=== PATIENT | female | born 1945 | race Caucasian/White ===

== ENCOUNTER 2024-11-03 18:45 | Emergency (ER) | payer OTHER, MEDICARE, SELFPAY ==
[2024-11-03 18:45] VITALS: BMI 17.7
[2024-11-03 19:01] VITALS: BP 164/88
[2024-11-03 19:21] LABS: % Basophils 0.6 % (0-2); % Eosinophils 1.7 % (0-6); % Immature Granulocytes 0.3 % (0-0.5); % Lymphocytes 14.7 % (20.5-51.1); % Monocytes 9.4 % (1.7-9.3); % Neutrophils 73.3 % (42.2-75.2); Absolute Basophils 0.1 10^3/uL (0-0.2); Absolute Eosinophils 0.1 10^3/uL (0-0.7); Absolute Lymphocytes 1.1 10^3/uL (1.2-3.4); Absolute Monocytes 0.7 10^3/uL (0.1-0.6); Absolute Neutrophils 5.7 10^3/uL (1.4-6.5); Hematocrit 45.2 % (37.0-47.0); Hemoglobin 15.5 g/dL (12.0-16.0); Mean Corp Hgb Conc. 34.3 g/dL (33.0-37.0); Mean Corpuscular Hgb 32.2 pg (27.0-31.0); Mean Platelet Volume 9.5 fL (7.4-10.4); Nucleated Red Blood Cells % 0 %; Platelet Count 261 10^3/uL (130-400); Red Blood Cell Count 4.81 10^6/uL (4.20-5.40); Red Cell Dist. Width 12.9 % (11.5-14.5); White Blood Cell Count 7.7 10^3/uL (4.8-10.8)
[2024-11-03 19:39] LABS: ALT (SGPT) 14 U/L (0-35); AST (SGOT) 18 U/L (14-36); Albumin 4.9 g/dl (3.5-5.0); Alkaline Phosphatase 92 U/L (38-126); Blood Urea Nitrogen 21 mg/dl (7-17); Calcium 10.8 mg/dl (8.4-10.2); Carbon Dioxide 32 mmol/L (22-30); Chloride 98 mmol/L (98-107); Glucose 114 mg/dl (70-99); Potassium 5.5 mmol/L (3.5-5.1); Sodium 137 mmol/L (135-145); Total Bilirubin 0.5 mg/dl (0.2-1.3); Total Protein 6.9 g/dl (6.3-8.2); eGFR > 60.00
[2024-11-03 20:00] VITALS: BP 145/88
--- NOTE | 2024-11-03 22:10 | ED.GENMED ---
History of Present Illness
General
Chief Complaint: Skin Problem
Source: patient
Time Seen by Provider: 11/03/24 22:01
Nursing documentation reviewed up to this point in time: agreed with
History of Present Illness
History of Present Illness:
79-year-old female that presents to the emergency department with redness, swelling and heel ulcer on the right foot. Patient states that the heel ulcer has been going on for several months. She has been applying antibiotic ointment to the wound
and attempt to care for it. Patient denies chest pain or shortness of breath. She states that the foot itself has been swollen and erythematous also for several months. Patient has been able to ambulate without issue. Denies fever, chills,
nausea or vomiting.
Review of Systems
Review of Systems
Allergies reviewed?: Yes
Other source history: family
All Other Systems: ROS reviewed and negative except as documented in HPI and ROS
Constitutional: Denies fever, sleep disturbance or chills
EENT: Reports no symptoms
Respiratory: Reports no symptoms
Cardiac: Reports no symptoms
ABD/GI: Reports no symptoms
: Reports no symptoms
Musculoskeletal: Reports no symptoms
Skin: Reports no symptoms
Neurological: Reports no symptoms
Endocrine: Reports no symptoms
Hematologic/Lymphatic: Reports no symptoms
Psychiatric: Reports anxiety
Phy Exam
General Physical Exam
General Presentation: well appearing and no apparent distress
General Skin: warm and dry
General Habitus: normal
General Mental: alert
General Hydration: appears well hydrated
ENT Exam
ENT Exam: EOMI, pharynx normal, neck supple and normocephalic
Eye Exam
Eye Exam: PERRL, cornea clear and conjunctiva normal
Cardiovascular Exam
Cardiovascular Exam: regular rate/rhythm, no edema, no murmur and normal peripheral pulses
Pulmonary Exam
Pulmonary Exam: lungs clear, no respiratory distress, no rales, no crackles, no rhonchi, no stridor, no wheezing and no cough
Gastrointestinal Exam
Gastrointestinal Exam: normal bowel sounds, non tender, soft, no organomegaly, no pulsatile mass and non distended
Neurological Exam
Neurological Exam: alert, oriented x3, no motor deficits and speech normal
Musculoskeletal Exam
Musculoskeletal Exam: full ROM and no edema
Skin Exam
Skin Exam: redness, tenderness and other (Grade 2 heel ulcer. Not through to the bone. There is a small leading edge of healing noted.)
Psychiatric Exam
Psychiatric Exam: normal mood/affect
Course
Orders/Labs/Results
Orders:
Orders
11/03/24 19:07
Foot, Right 3 View [CR Foot - Right Min 3 Views] Urgent
Comment:
Reason For Exam: redness/swelling
11/03/24 19:13
CBC/With Diff [Complete Blood Count/With Diff] Urgent
CMP [Comprehensive Metabolic Panel] Urgent
11/03/24 22:10
US Legs, Right [US Periph Venous LOWER Ext RT] Urgent
Comment:
Reason For Exam: swelling, heel ulcer, smoker
Abnormal Lab Results
11/03/24
19:13
MCH 32.2 H pg
(27.0-31.0)
Absolute Lymphs (auto) 1.1 L 10^3/uL
(1.2-3.4)
Absolute Monos (auto) 0.7 H 10^3/uL
(0.1-0.6)
Lymphocytes % 14.7 L %
(20.5-51.1)
Monocytes % 9.4 H %
(1.7-9.3)
Potassium 5.5 H mmol/L
(3.5-5.1)
Carbon Dioxide 32 H mmol/L
(22-30)
BUN 21 H mg/dl
(7-17)
Glucose 114 H mg/dl
(70-99)
Calcium 10.8 H mg/dl
(8.4-10.2)
11/03/24 19:13
11/03/24 19:13
Vital Signs
Initial and Last Documented VS:
Initial Vital Signs
Temp Pulse Resp BP Pulse Ox
98.7 F 101 16 164/88 96
11/03/24 19:01 11/03/24 19:01 11/03/24 19:01 11/03/24 19:01 11/03/24 19:01
Last Documented Vital Signs
Temp Pulse Resp BP Pulse Ox
98.6 F 87 16 145/88 99
11/03/24 19:01 11/03/24 20:00 11/03/24 20:00 11/03/24 20:00 11/03/24 20:00
*Critical Care Note
Total Time (30-74mins, 75-104mins- exclusive of procedures): Not Applicable
Update Note
Update Note:
Patient is a smoker.
May need an ankle-brachial index
Will be referred to wound care.
ED Attending Note
-
Portions of this chart may have been created with voice recognition software.� Occasional wrong word or��sound alike� substitutions may have occurred due to the inherent limitations of voice recognition software.
Discharge Plan
Departure
Condition: Good
Instructions: [facility]-Wounds, BLOOD PRESSURE, Wound Care ([facility])
Referrals:
Nidia Noel MD [Non-Admitting Privileges] -
WOUND CARE,CENTER [[facility]] - Next open appointment
Activity Restrictions/Additional Instructions:
Thank You for choosing [facility].
It was a pleasure meeting you and taking part in your care. We hope for your continued healing and wellness.
Please read discharge instructions in their entirety. However, they are for general education and may not describe your exact diagnosis at discharge. Information on your ER visit and medical conditions were discussed with you along with appropriate
follow up information...
If indicated, please take your medications as instructed and indicated on discharge paperwork.
Please schedule a follow up appointment as directed. Call to schedule an appointment
Please return to the emergency department with ANY change in, persisting, or worsening of symptoms. If any of your symptoms do not improve, or persist, or become more severe within 6-12 hours, please return to the emergency department for further
care.
Please return to the emergency department if you develop a headache, neck pain/stiffness, fever greater than 100.4F, chest pain, shortness of breath, persistent nausea, vomiting, slurred speech, difficulty walking, numbness/tingling, weakness, signs
of infection or any other symptoms that are worrisome to you.
If you have any questions or concerns please do not hesitate to call the Hospital at or E-mail me directly at [email or web address]
Interventions
Interventions:
*Risk Screen - Suicide Last Done: 11/03/24 19:01
*General Assessment Last Done: 11/03/24 19:01
*Neglect/Abuse Screening Last Done: 11/03/24 19:01
*ED- Fall Risk Assessment Last Done: 11/03/24 21:45
*ED COVID-19 Vaccine History Last Done: 11/03/24 19:01
ED-Skin Assessment Last Done: 11/03/24 21:45
Discharge Date and Time
Print Language: FAROESE
== END 2024-11-03 23:00 | disposition home or self-care (01) ==
LOC: EMR 18:45
PROVIDERS: Emergency Medicine; EMERGENCY PHYSICIAN Student in an Organized Health Care Education/Training Program; FAMILY PHYSICIAN Family Medicine
DX: L97.418 Non-pressure chronic ulcer of right heel and midfoot with other specified severity (principal); R22.41 Localized swelling, mass and lump, right lower limb; F17.200 Nicotine dependence, unspecified, uncomplicated
CPT/HCPCS: 99284; 73630; 80053; 85025; 93971

== ENCOUNTER → 2024-11-04 12:36 | Outpatient (REF) | payer OTHER, MEDICARE, SELFPAY | LOC: WOUND 12:36 | PROVIDERS: ATTENDING PHYSICIAN Surgery; FAMILY PHYSICIAN Family Medicine | DX: L97.313 Non-pressure chronic ulcer of right ankle with necrosis of muscle (principal); F17.210 Nicotine dependence, cigarettes, uncomplicated; I87.2 Venous insufficiency (chronic) (peripheral); I73.9 Peripheral vascular disease, unspecified | CPT/HCPCS: 11043; 99204 ==

== ENCOUNTER → 2024-11-10 09:05 | Outpatient (REF) | payer OTHER, SELFPAY | LOC: WOUND 09:05 | PROVIDERS: ATTENDING PHYSICIAN Surgery | DX: L97.313 Non-pressure chronic ulcer of right ankle with necrosis of muscle (principal); I87.2 Venous insufficiency (chronic) (peripheral); I73.9 Peripheral vascular disease, unspecified; F17.210 Nicotine dependence, cigarettes, uncomplicated | CPT/HCPCS: 11043 ==

== ENCOUNTER → 2024-11-17 08:40 | Outpatient (REF) | payer OTHER, SELFPAY | LOC: RAD 08:40 | PROVIDERS: ATTENDING PHYSICIAN Surgery; FAMILY PHYSICIAN Family Medicine | DX: L97.313 Non-pressure chronic ulcer of right ankle with necrosis of muscle (principal) | CPT/HCPCS: 93922; 93971 ==

== ENCOUNTER → 2024-11-21 09:58 | Outpatient (REF) | payer OTHER, SELFPAY | LOC: WOUND 09:58 | PROVIDERS: ATTENDING PHYSICIAN Surgery; FAMILY PHYSICIAN Family Medicine | DX: L97.313 Non-pressure chronic ulcer of right ankle with necrosis of muscle (principal); F17.210 Nicotine dependence, cigarettes, uncomplicated; I87.2 Venous insufficiency (chronic) (peripheral); I73.9 Peripheral vascular disease, unspecified | CPT/HCPCS: 99213 ==

== ENCOUNTER → 2024-11-30 16:13 | Outpatient (REF) | payer OTHER, SELFPAY ==
[2024-11-30 16:56] LABS: Blood Urea Nitrogen 20 mg/dl (7-17); Calcium 10.6 mg/dl (8.4-10.2); Carbon Dioxide 30 mmol/L (22-30); Chloride 101 mmol/L (98-107); Glucose 112 mg/dl (70-99); Potassium 4.9 mmol/L (3.5-5.1); Sodium 136 mmol/L (135-145); eGFR > 60.00
== END ==
LOC: REG 16:13
PROVIDERS: ATTENDING PHYSICIAN Surgery Vascular Surgery; FAMILY PHYSICIAN Family Medicine
DX: I73.9 Peripheral vascular disease, unspecified (principal)
CPT/HCPCS: 36415; 80048

== ENCOUNTER → 2024-12-06 14:34 | Outpatient (REF) | payer OTHER, SELFPAY | LOC: RAD 14:34 | PROVIDERS: ATTENDING PHYSICIAN Surgery Vascular Surgery; FAMILY PHYSICIAN Family Medicine | DX: I73.9 Peripheral vascular disease, unspecified (principal) | CPT/HCPCS: 75635; Q9967 ==

== ENCOUNTER → 2025-01-11 11:52 | Outpatient (REF) | payer OTHER, SELFPAY | LOC: RCS 11:52 | PROVIDERS: ATTENDING PHYSICIAN Internal Medicine Cardiovascular Disease; FAMILY PHYSICIAN Family Medicine | DX: Z01.810 Encounter for preprocedural cardiovascular examination (principal) | CPT/HCPCS: 78452; 93017; A9500; J2785 ==

== ENCOUNTER 2025-01-24 06:10 | Inpatient (IN) | payer OTHER, SELFPAY ==
[2025-01-19 09:15] VITALS: BMI 19.2
[2025-01-19 09:50] LABS: Hematocrit 47.5 % (37.0-47.0); Hemoglobin 16.3 g/dL (12.0-16.0); Mean Corp Hgb Conc. 34.3 g/dL (33.0-37.0); Mean Corpuscular Volume 90.3 fL (81.0-99.0); Nucleated Red Blood Cells % 0 %; Platelet Count 241 10^3/uL (130-400); Red Cell Dist. Width 11.9 % (11.5-14.5)
[2025-01-19 09:59] LABS: INR 0.86; PT 12.2 Sec (11.4-14.6)
[2025-01-19 10:00] LABS: APTT 35.8 Sec (23.4-35.0)
[2025-01-19 10:07] LABS: Blood Urea Nitrogen 15 mg/dl (7-17); Calcium 10.6 mg/dl (8.4-10.2); Carbon Dioxide 29 mmol/L (22-30); Chloride 97 mmol/L (98-107); Estimated Creatinine Clearance 58 ml/min; Glucose 105 mg/dl (70-99); Potassium 4.9 mmol/L (3.5-5.1); Sodium 133 mmol/L (135-145); eGFR > 60.00
--- NOTE | 2025-01-20 15:58 | PTCARENOTE ---
Abn ECG, Dr. Chery notified, no further actions requested. Maria G at DR. English office made aware.
[2025-01-24] VITALS (8 sets, daily range): BP systolic 109–147; BP diastolic 60–76
[2025-01-24] MEDS: VANCOCIN 200 IV (07:01)
[2025-01-24] MEDS: NSS 500 IV (07:02)
[2025-01-24] MEDS: BACTROBAN NASAL 1 GRAM NASAL (07:02)
[2025-01-24] MEDS: PERIDEX 0.12% ORAL RINSE 15 ML PO (07:02)
--- NOTE | 2025-01-24 07:15 | W.SUR.PREOP ---
Pre-Operative Surgical Note
-
I have examined this patient prior to the performance of the scheduled procedure.
The patient's condition is unchanged from the time of the current History and
Physical and the patient is able to undergo the scheduled procedure.
[2025-01-24 08:41] LABS: B.E. - POC -0.2 mmol/L; Glucose - POC 139 mg/dl (70-99); HCO3 - POC 25 mmol/L (21-28); Hematocrit - POC 40 % PCV (37-47); Hemodilution- POC Yes; Hemoglobin Calculated - POC 13.7; Ionized Calcium - POC 1.25 mmol/L (1.15-1.33); Lactate - POC < 0.30 mmol/L (0.36-0.75); O2 Saturation %Calculated-POC 99.9 % (94-98); PCO2 - POC 43 mmHg (35-48); PO2 - POC 290 mmHg (83-108); Potassium - POC 3.7 mmol/L (3.5-5.1); Sodium - POC 134 mmol/L (136-145); Specimen Type - POC Venous; pH - POC 7.37 (7.35-7.45)
[2025-01-24 09:19] LABS: ACT-LR - POC 372 Seconds (116-155)
[2025-01-24 10:17] LABS: ACT-LR - POC 260 Seconds (116-155)
[2025-01-24 11:22] LABS: ACT-LR - POC 260 Seconds (116-155)
[2025-01-24 13:15] LABS: Hematocrit 39.9 % (37.0-47.0); Hemoglobin 13.8 g/dL (12.0-16.0); Mean Corp Hgb Conc. 34.6 g/dL (33.0-37.0); Mean Corpuscular Volume 91.5 fL (81.0-99.0); Platelet Count 201 10^3/uL (130-400); Red Cell Dist. Width 12.1 % (11.5-14.5)
--- NOTE | 2025-01-24 13:16 | W.SUR.POST ---
Surgical Immediate Post Op
Note
Pre Op Diagnosis: Aorto-iliac occlusive disease, peripheral arterial disease.
Post Op Diagnosis: Aorto-iliac occlusive disease, peripheral arterial disease.
Procedure Performed: Bilateral iliac artery intravascular lithotripsy. Aorto-iliac stent placement with unibody device + left iliac extension. Left femoral endarterectomy. Right lower extremity angiography, intravascular lithotripsy of large
segment SFA-Pop + stent placement + angioplasty.
Primary Surgeon: Ted English III, MD
Secondary Surgeons: Franco Francis MD
Anesthesia: see anesthesia report
Estimated Blood Loss: 151 cc
Fluids: see anesthesia report
Drains/Shunts: n/a
Specimens/Cultures: n/a
Doppler/Duplex/Angio (Y/N): Y
Complications: none
Operative Findings: extensive atherosclerotic disease at the level of the distal abdominal aorta, aortic bifurcation and bilateral iliac arteries, as well as right SFA-Popliteal arteries.
[2025-01-24 13:30] LABS: INR 1.10; PT 14.5 Sec (11.4-14.6)
[2025-01-24 13:31] LABS: APTT 35.6 Sec (23.4-35.0)
[2025-01-24] MEDS: PLAVIX 300 MG PO (13:45)
[2025-01-24 13:49] LABS: Blood Urea Nitrogen 13 mg/dl (7-17); Calcium 8.5 mg/dl (8.4-10.2); Carbon Dioxide 26 mmol/L (22-30); Chloride 103 mmol/L (98-107); Estimated Creatinine Clearance 58 ml/min; Glucose 151 mg/dl (70-99); Potassium 4.6 mmol/L (3.5-5.1); Sodium 133 mmol/L (135-145); eGFR > 60.00
[2025-01-24] MEDS: LOW STRENGTH ASPIRIN 81 MG PO (13:53)
[2025-01-24] MEDS: NSS 1000 IV (14:00)
--- NOTE | 2025-01-24 14:00 | CON.INTV ---
Consultation
Consultation Request
Date/Time Consultation Requested: 01/24/2025
Date/Time Consultation Performed: 01/24/2025
Medical History
-
Chief Complaint: Limb pain
History of Present Illness:
Patient is a 79-year-old female who was evaluated in vascular surgery clinic for nonhealing Achilles area right foot wound as well as symptoms of claudication. Patient was noted to have peripheral vascular disease and was electively admitted to the ""hospital today for surgical revascularization. Patient has longstanding history of smoking and has not been on any aspirin or statins.
Past medical history.
Hypertension, hyperlipidemia, appendectomy, cholecystectomy, small bowel obstruction s/p surgery at [place].
Family history. Mother had hypertension, father also had hypertension. No history of lung cancer in the family
Social history. Current smoker.
Allergies / Home Medications
Allergies
Allergy/AdvReac Type Severity Reaction Status Date / Time
Penicillins Allergy Hives Verified 01/16/25 13:30
Home Medications
�Medication �Instructions �Recorded �Confirmed �Last Taken �Type
aspirin 81 mg tablet 81 mg PO DAILY 01/16/25 01/24/25 01/23/25 20:00 History
atorvastatin 40 mg tablet 40 mg PO DAILY 01/16/25 01/24/25 01/23/25 09:00 History
lisinopril 10 mg tablet 10 mg PO DAILY 01/16/25 01/24/25 01/23/25 09:00 History
polyethylene glycol 3350 17 4 g PO DAILY 01/24/25 01/24/25 01/20/25 History
gram/dose oral powder (Miralax)
Review of Systems
-
Hematologic/Lymphatic: Other (All 14 systems reviewed and negative except as stated above in the history of present illness.)
Vitals / Labs / Diagnostic Testing
Vital Signs
Temp Pulse Resp BP Pulse Ox
97.5 F 100 20 110/68 96
01/24/25 13:02 01/24/25 13:45 01/24/25 13:45 01/24/25 13:45 01/24/25 13:45
Lab Data
01/24/25 13:07
01/24/25 13:07
Laboratory Results
01/24/25
13:07
PT 14.5
INR 1.10
APTT 35.6 H
Diagnostic Testing:
Physical Exam
-
HEENT: Normocephalic
Cardiovascular: S1/S2
Respiratory: Clear and Other (AP diameter increased.)
GI: Soft and Non Distended
Neurology: Awake and Alert
Skin: Warm
General: Comfortable
Assessment
-
Patient is a 79-year-old female with significant history of peripheral vascular disease who was admitted to the hospital and had bilateral iliac artery intravascular lithotripsy, aortoiliac stent placement, left femoral endarterectomy, right lower
extremity angiography, intravascular lithotripsy of large segment SFA popliteal plus stent placement plus angioplasty by vascular surgery service, POD #0
Continue observation following procedure
Follow neurovascular checks per protocol
ASA, Plavox and statin on board
Follow BP monitoring and parameters as set by primary team
Cardiac work up reviewed.
Monitor on telemetry
Pain control per protocol
RASS goal 0
No known history of lung disease however has very longstanding history of smoking
CXR showing hyperinflated lungs and possibly right upper lobe nodule
No prior PFTs for review
Encouraged IS
Diet advancement per protocol
Aspiration precautions
GI prophylaxis: Protonix
Creat at baseline, follow UO
Critical I/Os
Void trials
Replete electrolytes as needed
No signs/symptoms suspicious for infectious etiology at this time
Will observe off antibiotics for now
Follow temperatures/CBC
Hb and platelets postoperatively stable
DVT prophylaxis: Heparin s.c.
Encouraged OOB/PT/OT/ambulation once cleared by surgical team
Other medical diagnoses:
- Hypertension
- Hyperlipidemia
- History of smoking. Suspect patient has underlying COPD. She has occasional cough with frequent phlegm production. No wheezing. X-ray appears to be hyperinflated. Needs pulmonary function testing as outpatient. Can use as needed albuterol
for now.
- Suspect lung nodule, RUL. 1.[address] chest for further evaluation. At risk of malignancy with h/o smoking.
Critical Care time 45 mins -- The patient is admitted for acute critical illness for the treatment of vital organ failure and/or prevention of further life-threatening conditions. Total care includes time spent in review of history, physical exam,
medications, hemodynamic/ventilator parameters, laboratory data, imaging and discussion with house staff, pharmacy, respiratory therapy, senior financial reporting analyst, and nursing.
Data:
CXR 01/2025: Biapical opacities probably representing chronic pleural-parenchymal scarring, although no prior imaging of the chest is currently available for direct comparison. Slightly more nodular 1.5 cm opacity in the right upper lobe for which a
follow-up chest CT is recommended.
Lexiscan 01/2025: Normal perfusion with no significant ischemia or scar. EF greater than 70%.
--- NOTE | 2025-01-24 15:20 | PTCARENOTE ---
received to room 3368 at ~1430. VSS. AOx3. NSR on telemetry, HR 90s. ABP 120-130s/50s, dressing to L a line clean/dry/intact. Dressing to R groin and MAGDALENO drain to L groin clean/dry/intact. Plan of care discussed. Patient left w/ call resendiz within
reach.
--- NOTE | 2025-01-24 16:32 | PTCARENOTE ---
Recd 1530 handoff at bedside, neurovascular checks obtained, doppler signals. L groin MAGDALENO, R groin gauze under tegaderm, soft. Family bedside, updates supplied. gown changed, art line zero and raymond, congruent with cuff pressures, see VS. English
patent. Belongings located in vascular lab, brought to room, dentures cleaned soaked and now in mouth. ordered diet, tolerated clear liquids and requesting soft. Encouraged to choose soft bland things.
--- NOTE | 2025-01-24 16:47 | OR.RPT ---
Operative Report
Operative Report
Date of Operation: 01/24/2025
Pre Op Diagnosis:
1. 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
2. 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
3. 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
4. 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
Post Op Diagnosis:
1. 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
2. 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
3. 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
4. 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
Procedure:
1. Intravascular lithotripsy to BILATERAL common iliac artery stenoses (bilateral 9 mm x 30 mm L6 shockwave balloons)
2. Aortoiliac stent grafting using AFX device (22�80/16�40 AFX main body; left iliac limb extension using 16 mm x 45 mm Ovation limb)
3. Left common femoral artery and proximal superficial femoral artery endarterectomy with patch angioplasty using bovine pericardium
4. Intravascular lithotripsy to right superficial femoral artery and popliteal artery calcified stenoses (6 mm x 80 mm E8 shockwave balloon)
5. Balloon angioplasty and drug-eluting stent placement to right superficial femoral artery and popliteal artery (overlapping 6 mm x 140 mm Zilver PTX stents)
6. Drug-coated balloon angioplasty to right popliteal artery stenosis behind the knee (5 mm x 60 mm Lutonix DCB)
7. Diagnostic right lower extremity arteriogram
8. Ultrasound-guided percutaneous access to the right common femoral artery
Surgeon: Ted English III, MD
Commissioner Of Internal Revenue: Franco Francis MD PGY-6
Anesthesia: General
Complications: None
Estimated Blood Loss: 150 cc
History and Indications for Procedure: 79-year-old female with limb threatening ischemia involving the right lower extremity manifested by a nonhealing Achilles wound. On workup she was found to have multilevel arterial disease. She was brought to
the operating room for revascularization.
Procedure in Detail: Sherlyn Bar was correctly identified and placed supine on the OR table. After adequate induction of anesthesia, the abdomen, pelvis, and bilateral groins to the thighs were prepped and draped in usual sterile fashion.
Preoperative antibiotics were administered. A time-out procedure was performed with the nursing and anesthesia staff confirming the patient's identity as well as the nature and laterality of the procedure. I made a vertical incision over the left
groin. Electrocautery was used to dissect the subcutaneous tissue. Lymphatics were ligated and divided between silk ties and metal clips. Through a combination of sharp dissection and electrocautery, I identified the common femoral artery. The
distal external iliac artery was encircled with a vessel loop underneath the inguinal ligament. Dissection was then continued distally. The femoral bifurcation was identified as well as the proximal superficial femoral artery and profunda femoral
artery. The proximal superficial femoral artery was encircled with a vessel loop at a soft spot. Dissection on the profunda femoral artery was carried to the first branch point. The first two branches were then individually controlled with vessel
loops.
We punctured the left common femoral artery under direct visualization and placed an 8 [place] sheath over a Bentson wire. Using ultrasound guidance we accessed the right common femoral artery in a retrograde fashion with a micropuncture needle and
upsized to a 7 [place] sheath over a Bentson wire. Systemic heparin was administered. On the right the Bentson wire was navigated into the abdominal aorta. I then exchanged out for a V18 wire. On the left I used a KMP catheter and a Glidewire to
navigate through the calcified left common iliac artery stenosis. The wire and catheter were advanced into the abdominal aorta. I then exchanged out for a V18 wire.
Due to the heavily calcified nature of the bilateral common iliac artery disease and aortic bifurcation disease and in an effort to modify the calcium to achieve maximum luminal gain with endovascular intervention I elected to proceed with
intravascular lithotripsy. Bilateral 9 mm x 30 mm L6 shockwave balloons were positioned in the common iliac arteries under roadmap guidance. Alternating rounds of lithotripsy pulse delivery at sub-nominal pressure and angioplasty at nominal
pressure was performed across the bilateral common iliac artery stenoses simultaneously. In between rounds of pulse delivery and angioplasty the balloon was deflated and repositioned under roadmap guidance. All 300 pulses were delivered from each
catheter. Subsequent arteriogram demonstrated significant improvement in the appearance of the distal abdominal aorta and bilateral common iliac arteries. We then proceeded with aortoiliac stent grafting.
From the left femoral access the V18 wire was exchanged out for a Lunderquist wire. On the right a snare catheter was advanced over the V18 wire and positioned in the distal abdominal aorta. The ensnare device was then advanced through the snare
catheter to the abdominal aorta.
Over the Lunderquist wire in the left femoral access I placed the AFX introducer sheath and advanced the radio-opaque sheath tip to the abdominal aorta. The contralateral limb wire of the AFX2 main body was introduced through the introducer sheath
and advanced to the aortic bifurcation. The 22-80/16-40 AFX2 bifurcated main body was then loaded onto the Lunderquist wire and advanced through the introducer sheath. The wire was snared from the contralateral side and pulled out the right femoral
access and the AFX2 main body was advanced until the limbs were above the aortic bifurcation. The entire system was then pulled down onto the aortic bifurcation. The main body was then deployed by pulling the control cord.
The contralateral limb was then deployed by pulling the yellow limb cover. Once this was completed I advanced a pigtail catheter over the contralateral limb wire until the tip was in contact with the wire lock. The contralateral limb was then pulled
as I advanced the pigtail up to release it from the wire lock. The wire was removed and the formed pigtail catheter was then advanced proximally. The ipsilateral limb was deployed by pinning the inner core and retracting the AFX introducer sheath.
The delivery system was removed on the left. A Coda balloon was introduced on the left and used to profile the entire main body of the AFX and the left iliac limb. Subsequently we could not advance the AFX introducer sheath through the left iliac
limb for the limb extension and therefore I exchanged out for a 16 [place]er dry seal sheath. Under roadmap guidance a left iliac limb extension was placed-16 mm x 45 mm Ovation.
Bilateral 10 mm x 40 mm angioplasty balloons were then positioned in the distal aortic main body extending into the common iliac arteries bilaterally. Kissing balloon angioplasty was performed to profile the distal main body, aortic bifurcation and
bilateral iliac limbs.
A completion aortogram demonstrated an excellent technical result. The aortoiliac stent graft was patent. There was brisk flow through the aortic stent and iliac limbs. The renal arteries were widely patent bilaterally. The iliac bifurcations were
preserved bilaterally. Satisfied with this result we then moved ahead with the femoral endarterectomy portion of the procedure.
The dry seal sheath on the left was removed along with the wire. A Derra clamp was applied to the distal left external iliac artery. The distal vessel loops were secured. Dhillon scissors were used to extend the sheath access site arteriotomy on the
common femoral artery. The arteriotomy was carried distally to the proximal superficial femoral artery. The arteriotomy was extended up to the proximal common femoral artery. An endarterectomy was performed in the standard fashion with a [place]
elevator. The proximal extent of the plaque was transected and then additional elements of plaque were pulled out from the distal external iliac artery using forceps. The distal end of the plaque was feathered at the proximal superficial femoral
artery. An intimal flap at the proximal superficial femoral artery was tacked down posteriorly with several interrupted 7-0 Prolene sutures. Similarly an intimal flap at the origin of the profunda femoral artery was tacked down with an interrupted
7-0 Prolene suture. The endarterectomy plane was then irrigated with heparinized saline solution and any loose fronds of tissue were removed. I brought onto the field a precut piece of bovine pericardium and this was used as a patch. The patch was
then sewn in place using a running 5-0 Prolene suture. Prior to the completion of the anastomosis, we allowed the arteries to forward and backbleed temporarily. The area under the anastomosis was flushed aggressively with heparinized saline
solution to remove any potential thrombus or debris. The anastomosis was then completed. The proximal clamp and distal vessel loops were then released. There was an excellent pulse that was easily palpable within the common femoral artery,
proximal superficial femoral artery and proximal profunda femoral artery. The suture line was closely inspected for hemostasis which was achieved.
Following the common femoral endarterectomy we proceeded with endovascular intervention on the right lower extremity. We punctured the left common femoral artery patch under direct visualization with a micropuncture needle and upsized to a 5 [place]er
sheath. I carefully advanced a Bentson wire and mckoy's a catheter into the distal main body of the AFX stent graft. Using a Glidewire and the mckoy's hook catheter I selected the right common iliac limb followed by the right external iliac
artery and then the common femoral artery. The catheter was tracked up and over the aortic bifurcation and placed in the right common femoral artery. A diagnostic right lower extremity arteriogram was then performed which demonstrated the
following:
RIGHT LOWER EXTREMITY:
Common femoral artery: Calcified but patent. 7 [place]er sheath in the right common femoral artery was visualized
Profunda femoral artery: Patent
Superficial femoral artery: Diffusely calcified. Patent. Multifocal high-grade stenoses throughout
Popliteal artery: High-grade stenosis above the knee. Moderate stenosis behind the knee. Below the knee small diameter but patent with no significant stenosis identified
Anterior tibial artery: Patent. High-grade stenosis mid segment.
Tibioperoneal trunk: Patent
Peroneal artery: Patent. Appears to occlude at the ankle.
Posterior tibial artery: Patent proximally but occluded distally.
ENDOVASCULAR INTERVENTION: Exchanged out for a 6 Fr 45 cm sheath over a Storq wire. Selected the superficial femoral artery under roadmap guidance with Quickcross catheter and glidewire. The SFA and popliteal artery disease was crossed with a
Quickcross and Glidewire. The wire and catheter were advanced into the below the knee popliteal artery and subtraction angio confirmed proper position in the true lumen. Exchanged out for a [place] ST 0.014 wire. Due to the heavily calcified nature
of the superficial femoral and popliteal artery disease and in an effort to modify the calcium to achieve maximum luminal gain with endovascular intervention I elected to proceed with intravascular lithotripsy. A 6 mm x 80 mm Shockwave balloon was
positioned in the popliteal artery behind the knee under roadmap guidance. Alternating rounds of lithotripsy pulse delivery at sub-nominal pressure and angioplasty at nominal pressure was performed across the stenosis. In between rounds of pulse
delivery and angioplasty the balloon was deflated and repositioned under roadmap guidance. The popliteal artery and entire length of SFA was treated with the 6 mm lithotripsy balloon. All 400 pulses were delivered. Subsequent arteriogram
demonstrated significant improvement but there was evidence of dissection present. I then brought into position overlapping Zilver PTX stents to treat the residual disease. A 6 mm x 140 mm Zilver PTX stent was brought into position under roadmap
guidance and the popliteal artery. This was deployed in the desired location. An additional 6 mm x 140 mm Zilver PTX stent was overlapped slightly with the initial stent and deployed more proximally. The entire length of stents was profiled with
a 5 mm angioplasty balloon. The stenosis in the popliteal artery behind the knee was treated with a 5 mm x 60 mm Lutonix drug-coated balloon.
COMPLETION ARTERIOGRAM: Excellent technical result. Widely patent superficial femoral artery. Patent superficial femoral artery/popliteal artery stents with no significant residual stenosis identified. Patent popliteal artery behind the knee with
no significant residual stenosis identified. Improved tibial artery runoff compared to pretreatment. Anterior tibial artery was the dominant runoff distally and several areas of stenosis were identified. Peroneal artery was patent with areas of
high-grade stenosis and segmental occlusion distally. Posterior tibial artery was patent proximally but occluded distally.
Satisfied with this result we concluded the procedure. The wire and sheath were removed from the left common femoral artery patch. The puncture site was repaired with an interrupted 5-0 Prolene suture. Protamine was administered. The suture
lines were closely inspected for hemostasis which was achieved. The wound was irrigated with copious amounts of saline solution. The wound was closed in layers and sterile dressings were applied. The 7 [place]er sheath on the right femoral access
was secured in place with the plan to pull it in the recovery room.
The patient tolerated the procedure well and was taken to the recovery area in stable condition.
Attestation: I was present and responsible for the entire procedure.
Signed:
Ted English III, MD
Vascular Surgery
[facility]
[2025-01-24] MEDS: PROTONIX 40 MG PO (16:53)
[2025-01-24 17:04] LABS: ACT-LR - POC 331 Seconds (116-155)
--- NOTE | 2025-01-24 18:33 | PTCARENOTE ---
ate dinner, appetite fair, tolerated. I/O collected. Signals remain doppler x 4. No increase in L fem MAGDALENO dressing drainage. Pump with green light and good suction to entiire dressing. Groin sites soft, no hematoma.
--- NOTE | 2025-01-24 20:34 | PTCARENOTE ---
Received pt from previous RN. Pt is AAOx3, neurovascular checks Q1 (see worklist). NSR on the monitor, doppler pedals. Pt on RA O2 sat 92%, lungs clear. English in place for critical I&O. Left groin gilda drain intact, drainage on dressing. Right groin
dressing c/d/i. NS infusing @ 80 ml/hr. Pt has no c/o pain. [place] zeroed and transduced. Hygiene offered, pt refused at this time. Call resendiz in reach. Safe environment maintained.
[2025-01-25] VITALS (12 sets, daily range): BP systolic 106–163; BP diastolic 64–98; BMI 19.6
--- NOTE | 2025-01-25 01:01 | PTCARENOTE ---
Systems reviewed, no new changes in assessment. Neurovascular checks per protocol, with in normal limits. Call resendiz in reach. Safe environment maintained.
[2025-01-25] MEDS: TYLENOL 650 MG PO ×2 (03:01→21:04)
[2025-01-25] MEDS: NSS 1000 IV (03:01)
[2025-01-25 04:14] LABS: Hematocrit 33.5 % (37.0-47.0); Hemoglobin 11.5 g/dL (12.0-16.0); Mean Corp Hgb Conc. 34.3 g/dL (33.0-37.0); Mean Corpuscular Volume 90.8 fL (81.0-99.0); Platelet Count 169 10^3/uL (130-400); Red Cell Dist. Width 12.2 % (11.5-14.5)
[2025-01-25 04:27] LABS: INR 1.00; PT 13.5 Sec (11.4-14.6)
[2025-01-25 04:29] LABS: APTT 32.6 Sec (23.4-35.0)
--- NOTE | 2025-01-25 04:38 | PTCARENOTE ---
Systems reviewed, no new changes in assessment. AM labs provided. Pt requesting Tylenol for 7/10 b/l leg pain (see MAR). Safe environment maintained.
[2025-01-25 04:40] LABS: Blood Urea Nitrogen 9 mg/dl (7-17); Calcium 8.3 mg/dl (8.4-10.2); Carbon Dioxide 25 mmol/L (22-30); Chloride 105 mmol/L (98-107); Estimated Creatinine Clearance 59 ml/min; Glucose 91 mg/dl (70-99); Potassium 4.1 mmol/L (3.5-5.1); Sodium 131 mmol/L (135-145); eGFR > 60.00
--- NOTE | 2025-01-25 08:00 | W.PN.VS ---
Addendum entered and electronically signed by Everton Lara MD 01/25/25 15:22:
Seen and examined with KAROL Li earlier this a.m. Agree with findings as noted below. Patient was without any major complaints. Abdomen soft, nondistended, nontender. Left groin dressing clean dry and intact, groin flat. Right groin flat, no
hematoma. Feet both pink and warm. Plan/as discussed and noted below.
Original Note:
Today's Communication / Plan
-
See below.
Assessment/Plan
-
Assessment: 79-year-old female POD #1
1. Intravascular lithotripsy to BILATERAL common iliac artery stenoses (bilateral 9 mm x 30 mm L6 shockwave balloons)
2. Aortoiliac stent grafting using AFX device (22�80/16�40 AFX main body; left iliac limb extension using 16 mm x 45 mm Ovation limb)
3. Left common femoral artery and proximal superficial femoral artery endarterectomy with patch angioplasty using bovine pericardium
4. Intravascular lithotripsy to right superficial femoral artery and popliteal artery calcified stenoses (6 mm x 80 mm E8 shockwave balloon)
5. Balloon angioplasty and drug-eluting stent placement to right superficial femoral artery and popliteal artery (overlapping 6 mm x 140 mm Zilver PTX stents)
6. Drug-coated balloon angioplasty to right popliteal artery stenosis behind the knee (5 mm x 60 mm Lutonix DCB)
7. Diagnostic right lower extremity arteriogram
8. Ultrasound-guided percutaneous access to the right common femoral artery
Plan:
Discontinue English catheter
Discontinue arterial line
Out of bed to chair with progression ambulation as tolerated
Continue Plavix 75 mg p.o. daily with aspirin 81 mg p.o. daily, likely will discharge on a modified Compass protocol of 75 mg p.o. daily Plavix with low-dose Xarelto 2.5 mg p.o. twice daily in effort to maximize medical therapy
PT
Continue incentive spirometry
Appreciate assembler tester/pulmonology recommendations, CT chest pending
Continue neurovascular checks
Continue ICU level care today
Hemoglobin with scant drift to 11.5 today, postoperatively 13.8 suspect hemodilution with an accompanying acute blood loss anemia following surgery, will recheck H&H at noon. However, low suspicion for any active bleeding given physical exam
stable and vital signs. Will also repeat BMP, suspect low sodium level chronic. Patient not exhibiting any signs or symptoms of hyponatremia.
Subjective Data
-
Date of Service: January 25, 2025
Patient seen and examined bedside, offers no complaints. Reports well-managed postoperative pain. Denies nausea, vomiting, fever, and chills.
Objective Data
-
Vital Signs
Temp Pulse Resp BP Pulse Ox
98.8 F 81 17 137/72 95
01/25/25 07:22 01/25/25 06:30 01/25/25 06:30 01/24/25 16:01 01/25/25 06:30
Intake and Output
01/24/25 01/25/25 01/26/25
06:59 06:59 06:59
Intake Total 2320 / 2320
Output Total 1948 / 1948
Balance 371 / 371
Intake:
Oral fluids 540 / 540
IV fluids (Total) 1780 / 1780
Normosol 500 / 500
Nss 1,000 ml @ 80 mls/hr IV . 1280 / 1280
[id number] [facility] Rx#:[id number]
Output:
Urine, English 1898 / 1898
Urine, Voided 50 / 50
Lab Results
01/25/25 04:03
01/25/25 04:03
Calcium 8.3 mg/dl (8.4-10.2) L 01/25/25 04:03
Physical Exam
-
No apparent distress, resting in bed comfortably
No tachycardia
No dyspnea on room air
ABD flat, nontender, nondistended
Left groin surgical site with gilda dressing, dry and intact, flat, no evidence of hematoma
Bilateral DP/PT pulse by Doppler
English draining clear yellow urine
[2025-01-25] MEDS: LIPITOR 40 MG PO (08:10)
[2025-01-25] MEDS: LOW STRENGTH ASPIRIN 81 MG PO (08:10)
[2025-01-25] MEDS: PLAVIX 75 MG PO (08:10)
[2025-01-25] MEDS: PROTONIX 40 MG PO (08:10)
[2025-01-25] MEDS: ZESTRIL 10 MG PO (08:10)
--- NOTE | 2025-01-25 09:00 | PTCARENOTE ---
Rec'd pt at 0700 awake alert and oriented resting in bed. Overall states she feels better although states she did not sleep last night. Speech is clear. Denies dizziness or headache. REYNA. Legs are sl weak but easily able to move them. Admits to dull
achiness of the R leg but states its better since the Tylenol earlier and does not want any additional Tylenol presently. Skin is pink wm and dry. R groin puncture site with dressing over that is D+I. L groin incision with MAGDALENO drain present-
dressing over with small area of old sang drainage. + Pulses. PT and DP pulses with the doppler. No edema and extrem are warm and pink. R heel with foam dressing over wound. Respirs are sl shallow but non-labored. BS are sl decreased at the bases.
Coughing a moist sometimes prod cough for whitish secretions. RA sats are 94-95%. Getting about 800 on IS. Monitor SR. Denies chest pain . VS as documented. L radial a line intact- good cms checks to distal extrem. Zeroed and recalibrated. Overall
congruent with cuff BP (within 10-15 mm/hg). Abd is soft with + BS. Denies nausea. passing flatus. Thermistor connor intact for yellow urine. NSS infusing at 80 ml/hr via LAC IV site. Site wnl. Pt repositioned. Awaiting breakfast. Call resendiz in reach.
Updated on plan of care.
--- NOTE | 2025-01-25 10:00 | PTCARENOTE ---
Dr. Lara in to see pt and updated. IV fluids dc'd. English dc'd at 1000 per md order.
--- NOTE | 2025-01-25 10:55 | CM ---
POD #1. Initial assessment completed with patient who lives alone in a 2 story plus basement [facility] with B/B on 2nd and 1/2 bath on 1st, 2 steps to enter home. 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 Daughter
transports to medical appointments. Has a RW but does not use. No no-home services. No service. Does have HC-POA. PCP is Dr. Ángel Law and Pharmacy is [facility] on [address] in [place]. Discharge POC: Home with No needs vs Home with HH
services.
--- NOTE | 2025-01-25 11:50 | PTCARENOTE ---
Labs sent as ordered and then L radial A line dc'd at 1130 - Pressure held over the site- no hematoma. No other changes. No complaints offered. Currently taken to CT scan for CT of the chest.
[2025-01-25 12:01] LABS: Hematocrit 34.3 % (37.0-47.0); Hemoglobin 11.8 g/dL (12.0-16.0)
--- NOTE | 2025-01-25 12:05 | W.PN.INTV ---
Addendum entered and electronically signed by Kang Montoya MD 01/26/25 12:24:
- Patient transferred out of ICU
- Woodworking Craftsman service will sign off, please call as needed
- Patient will need outpatient follow-up with pulmonary clinic, will arrange, updated patient.
Original Note:
Today's Communication / Plan
Recommendations
- Await CT chest
Assessment
-
Patient is a 79-year-old female who was evaluated in vascular surgery clinic for nonhealing Achilles area right foot wound as well as symptoms of claudication. Patient was noted to have peripheral vascular disease and was electively admitted to the
hospital today for surgical revascularization. Patient has longstanding history of smoking and has not been on any aspirin or statins.
Patient is a 79-year-old female with significant history of peripheral vascular disease who was admitted to the hospital and had bilateral iliac artery intravascular lithotripsy, aortoiliac stent placement, left femoral endarterectomy, right lower
extremity angiography, intravascular lithotripsy of large segment SFA popliteal plus stent placement plus angioplasty by vascular surgery service, POD #1
Continue observation following procedure
Follow neurovascular checks per protocol
ASA, Plavix and statin on board
Follow BP monitoring and parameters as set by primary team
Cardiac work up reviewed.
Monitor on telemetry
Patient currently saturating 94% on room air. Not requiring any pressor support.
Pain control per protocol
RASS goal 0
No known history of lung disease however has very longstanding history of smoking
CXR showing hyperinflated lungs and possibly right upper lobe nodule
No prior PFTs for review
Encouraged IS
Diet advancement per protocol
Aspiration precautions
GI prophylaxis: Protonix
Creat at baseline, follow UO
Critical I/Os
Void trials
Replete electrolytes as needed
No signs/symptoms suspicious for infectious etiology at this time
Will observe off antibiotics for now
Follow temperatures/CBC
Hb and platelets postoperatively showing drift in Hb
DVT prophylaxis: Heparin s.c.
Encouraged OOB/PT/OT/ambulation once cleared by surgical team
Other medical diagnoses:
- Hypertension
- Hyperlipidemia
- History of smoking. Suspect patient has underlying COPD. She has occasional cough with frequent phlegm production. No wheezing. X-ray appears to be hyperinflated. Needs pulmonary function testing as outpatient. Can use as needed albuterol
for now.
- Suspect lung nodule, RUL. 1.[address] chest for further evaluation. At risk of malignancy with h/o smoking.
Critical Care time 35 mins -- The patient is admitted for acute critical illness for the treatment of vital organ failure and/or prevention of further life-threatening conditions. Total care includes time spent in review of history, physical exam,
medications, hemodynamic/ventilator parameters, laboratory data, imaging and discussion with house staff, pharmacy, respiratory therapy, head of physics, and nursing.
Data:
CXR 01/2025: Biapical opacities probably representing chronic pleural-parenchymal scarring, although no prior imaging of the chest is currently available for direct comparison. Slightly more nodular 1.5 cm opacity in the right upper lobe for which a
follow-up chest CT is recommended.
Lexiscan 01/2025: Normal perfusion with no significant ischemia or scar. EF greater than 70%.
Subjective Dataa
Subjective Data
Date of Service:
Date of Service: January 25, 2025
Subjective:
Patient comfortably lying in bed in no acute distress.
Review of Systems
Genitourinary: Other (All 14 systems reviewed and negative except as stated above in the history of present illness.)
Objective Data
Data Reviewed
Vital Signs / I&O / Oxygen:
Vital Signs
Temp Pulse Resp BP Pulse Ox
98.6 F 94 20 155/58 94
01/25/25 11:26 01/25/25 12:00 01/25/25 12:00 01/25/25 08:10 01/25/25 11:30
Intake and Output
01/24/25 01/25/2525
06:59 06:59 06:59
Intake Total 2320 / 2400 870 / 870
Output Total 1948 / 1948 575 / 575
Balance 371 / 451 295 / 295
SaO2 94
Nasal Cannula flow liters per 2
minute
Physical Exam
General: Comfortable
HEENT: Normocephalic
Cardiovascular: S1-S2
Respiratory: Clear and Non-Labored Respirations
GI: Soft and Non Distended
Neurology: Awake and Alert
Skin: Warm
Labs/Micro/Reports
Lab Data
01/25/25 11:32
Laboratory Results
01/24/25 01/25/25
13:07 04:03
PT 14.5 13.5
INR 1.10 1.00
APTT 35.6 H 32.6
[2025-01-25 13:10] LABS: Blood Urea Nitrogen 8 mg/dl (7-17); Calcium 8.9 mg/dl (8.4-10.2); Carbon Dioxide 26 mmol/L (22-30); Chloride 103 mmol/L (98-107); Estimated Creatinine Clearance 59 ml/min; Glucose 122 mg/dl (70-99); Potassium 3.9 mmol/L (3.5-5.1); Sodium 133 mmol/L (135-145); eGFR > 60.00
--- NOTE | 2025-01-25 13:25 | PTCARENOTE ---
Returned from CT scan- tolerated well. Upon return complete CHG bath given and pt then assisted off of the stretcher and oob to the chair. Gait is weak but easily able to bear wt. Did admit to some leg soreness with standing and walking but was able
to ambulate with minimal assistance. Currently resting oob in the chair. Daughter at the bedside. States she well do her denture care later. Call resendiz in reach. Assessment otherwise unchanged.
--- NOTE | 2025-01-25 14:00 | PTCARENOTE ---
Pt ambulated to bathroom and voided yellow urine. Ready to eat lunch. Labs drawn earlier resulted to Vascular Surgery.
--- NOTE | 2025-01-25 16:00 | PTCARENOTE ---
Pts legs were starting to feel sore sitting oob- assisted back to bed and felt better after being back to bed. Coughing a moist cough. VS as documented. + pulses. Incisions unchanged. MAGDALENO dressing remains intact L groin and functioning. Did not
want anything for pain. Call resendiz in reach.
[2025-01-25] MEDS: MIRALAX 17 GRAMS PO (16:28)
[2025-01-25] MEDS: HEPARIN 5000 UNITS SC ×2 (16:28→23:40)
--- NOTE | 2025-01-25 16:30 | PTCARENOTE ---
Pt has not moved her bowels in several days. Miralax given
--- NOTE | 2025-01-25 21:05 | PTCARENOTE ---
Received pt from previous RN. Pt is AAOx3, neurovascular checks per protocol (see worklist). NSR on the monitor. Pt on RA O2 sat 95%, lungs clear. BRPx1. Left groin gilda dressing intact. Pt c/o 01/19 b/l leg pain, pt asking for Tylenol, PRN Tylenol
given (see MAR). Call resendiz in reach. Safe environment maintained.
--- NOTE | 2025-01-25 23:45 | PTCARENOTE ---
Systems reviewed, no new changes in assessment. Neurovascular checks with in normal limits (see worklist). Pt c/o feeling shaking, asking for a nicotine patch, ICU DRIED FRUIT WASHER notified, nicotine patch ordered.
[2025-01-25] MEDS: NICODERM TRANSDERMAL 21 MG TRANSDERM (23:50)
[2025-01-26] VITALS (17 sets, daily range): BP systolic 107–184; BP diastolic 60–99; PULSE 113; O2SAT 96; BMI 19.6
--- NOTE | 2025-01-26 04:49 | PTCARENOTE ---
Systems reviewed, no new changes in assessment. AM labs provided. Call resendiz in reach. Safe environment maintained.
[2025-01-26 04:51] LABS: Hematocrit 36.7 % (37.0-47.0); Hemoglobin 12.6 g/dL (12.0-16.0); Mean Corp Hgb Conc. 34.3 g/dL (33.0-37.0); Mean Corpuscular Volume 91.5 fL (81.0-99.0); Platelet Count 172 10^3/uL (130-400); Red Cell Dist. Width 12.2 % (11.5-14.5)
[2025-01-26 05:27] LABS: Blood Urea Nitrogen 7 mg/dl (7-17); Calcium 9.6 mg/dl (8.4-10.2); Carbon Dioxide 25 mmol/L (22-30); Chloride 104 mmol/L (98-107); Estimated Creatinine Clearance 59 ml/min; Glucose 121 mg/dl (70-99); Potassium 4.4 mmol/L (3.5-5.1); Sodium 132 mmol/L (135-145); eGFR > 60.00
--- NOTE | 2025-01-26 07:30 | W.PN.VS ---
Addendum entered and electronically signed by Everton Lara MD 01/26/25 16:26:
Seen and examined earlier this a.m. Agree with findings as noted below. Plan as discussed and noted below.
Original Note:
Today's Communication / Plan
-
Patient seen and examined at bedside with Dr. Everton Lara, below plan reviewed with attending.
Assessment/Plan
-
Assessment: 79-year-old female POD #2
1. Intravascular lithotripsy to BILATERAL common iliac artery stenoses (bilateral 9 mm x 30 mm L6 shockwave balloons)
2. Aortoiliac stent grafting using AFX device (22�80/16�40 AFX main body; left iliac limb extension using 16 mm x 45 mm Ovation limb)
3. Left common femoral artery and proximal superficial femoral artery endarterectomy with patch angioplasty using bovine pericardium
4. Intravascular lithotripsy to right superficial femoral artery and popliteal artery calcified stenoses (6 mm x 80 mm E8 shockwave balloon)
5. Balloon angioplasty and drug-eluting stent placement to right superficial femoral artery and popliteal artery (overlapping 6 mm x 140 mm Zilver PTX stents)
6. Drug-coated balloon angioplasty to right popliteal artery stenosis behind the knee (5 mm x 60 mm Lutonix DCB)
7. Diagnostic right lower extremity arteriogram
8. Ultrasound-guided percutaneous access to the right common femoral artery
Plan:
Continue to encourage ambulation
Continue Plavix 75 mg p.o. daily with aspirin 81 mg p.o. daily, likely will discharge on a modified [facility] protocol of 75 mg p.o. daily Plavix with low-dose Xarelto 2.5 mg p.o. twice daily in effort to maximize medical therapy
PT
Continue incentive spirometry
Appreciate forest manager/pulmonology recommendations
Continue neurovascular checks
Can downgrade to telemetry, possible discharge later this afternoon pending progression of ambulation toleration
Hemoglobin stable
Subjective Data
-
Date of Service: January 26, 2025
Patient seen and examined, offers no complaints. Denies nausea, vomiting, chills, and fever. Reports tolerating ambulation from bed to bathroom/chair without issues or incident. Reports adequate pain management.
Objective Data
-
Vital Signs
Temp Pulse Resp BP Pulse Ox
98.7 F 97 20 154/77 92
01/26/25 04:00 01/26/25 06:00 01/26/25 06:00 01/26/25 06:00 01/26/25 06:00
Intake and Output
01/25/25 01/26/25 01/27/25
06:59 06:59 06:59
Intake Total 2320 / 2400 1770 / 1770
Output Total 1949 / 1949 825 / 825
Balance 371 / 451 945 / 945
Intake:
Oral fluids 540 / 540 1450 / 1450
IV fluids (Total) 1780 / 1860 320 / 320
Normosol 500 / 500
Nss 1,000 ml @ 80 mls/hr IV . 1280 / 1360 320 / 320
[id number] ANALI Rx#:[id number]
Output:
Urine, English 1899 / 189 575 / 575
Urine, Voided 50 / 50 250 / 250
Other:
Number of approximated SMALL 1
amounts of urine
Number of approximated MODERATE 1
amounts of urine
Lab Results
01/26/25 04:27
01/26/25 04:27
Calcium 9.6 mg/dl (8.4-10.2) 01/26/25 04:27
Physical Exam
-
No apparent distress, resting in bed comfortably
No tachycardia
No dyspnea on room air
ABD flat, nontender, nondistended
Left groin surgical site with gilda dressing, dry and intact, flat, no evidence of hematoma
Right DP palpable and left PT palpable
--- NOTE | 2025-01-26 07:45 | PTCARENOTE ---
Assumed care of patient. Pt rec'd A&Ox3...pleasant...denies pain at present. Assessment complete. Takes po meds w/o issue. Breakfast ordered. VS completed. Call resendiz within reach. Will continue to monitor.
[2025-01-26] MEDS: NICODERM TRANSDERMAL 21 MG TRANSDERM (07:55)
[2025-01-26] MEDS: PROTONIX 40 MG PO (07:58)
[2025-01-26] MEDS: LOW STRENGTH ASPIRIN 81 MG PO (07:58)
[2025-01-26] MEDS: PLAVIX 75 MG PO (07:58)
[2025-01-26] MEDS: ZESTRIL 10 MG PO (07:59)
[2025-01-26] MEDS: LIPITOR 40 MG PO (07:59)
[2025-01-26] MEDS: HEPARIN 5000 UNITS SC ×2 (08:01→15:23)
--- NOTE | 2025-01-26 10:15 | PTCARENOTE ---
Remains in chair w/o issue. Seen by PT...ambulated in hallway w/ rolling walker.
--- NOTE | 2025-01-26 15:14 | PTCARENOTE ---
Report called...pt to transfer to Room 2125. Belongings packed and will transfer w/ patient.
--- NOTE | 2025-01-26 16:50 | CM ---
PT recommended home PT vs. No needs; Daughter called trimming caser; she requested home health services for her mother;
Vascular service contacted; Case Management Consult for [facility] Care ordered; referral sent to [facility] liaison via [employer]
Plan: Discharge to home with [facility], PT services when medically stable
[2025-01-26] MEDS: MIRALAX 17 GRAMS PO (20:39)
[2025-01-27] MEDS: HEPARIN 5000 UNITS SC ×2 (00:27→07:48)
[2025-01-27] MEDS: TYLENOL 650 MG PO (00:34)
[2025-01-27 03:00] VITALS: BP 122/76
[2025-01-27 06:24] LABS: Hematocrit 34.3 % (37.0-47.0); Hemoglobin 11.8 g/dL (12.0-16.0); Mean Corp Hgb Conc. 34.4 g/dL (33.0-37.0); Mean Corpuscular Volume 90.5 fL (81.0-99.0); Platelet Count 149 10^3/uL (130-400); Red Cell Dist. Width 12.1 % (11.5-14.5)
[2025-01-27 06:57] LABS: Blood Urea Nitrogen 9 mg/dl (7-17); Calcium 9.2 mg/dl (8.4-10.2); Carbon Dioxide 27 mmol/L (22-30); Chloride 102 mmol/L (98-107); Estimated Creatinine Clearance 59 ml/min; Glucose 99 mg/dl (70-99); Potassium 4.1 mmol/L (3.5-5.1); Sodium 130 mmol/L (135-145); eGFR > 60.00
[2025-01-27 07:30] VITALS: BP 146/73
[2025-01-27] MEDS: PROTONIX 40 MG PO (07:48)
[2025-01-27] MEDS: ZESTRIL 10 MG PO (07:48)
[2025-01-27] MEDS: NICODERM TRANSDERMAL TRANSDERM (07:49)
[2025-01-27] MEDS: LOW STRENGTH ASPIRIN 81 MG PO (07:49)
[2025-01-27] MEDS: PLAVIX 75 MG PO (07:49)
[2025-01-27] MEDS: LIPITOR 40 MG PO (07:49)
--- NOTE | 2025-01-27 09:34 | VNURNOTE ---
Home Health Liaison met with patient at bedside to discuss [facility] nurse/therapy, visits, schedule and homebound status. Patient is agreeable and understands that visits at home will be 2-3 x per week to assess and teach medical management.
Patient is aware that [facility] will contact them for start of care in 1-2 days after discharge from .
[facility] referral accepted in [facility] Port.
[2025-01-27 11:33] VITALS: BP 126/69
--- NOTE | 2025-01-27 11:55 | CM ---
CM following re: discharge planning.
Reviewed pt's chart, met with pt.
Pt is POD#2 Bilateral iliac artery intravascular lithotripsy. Pt reports she is doing well and ready to go home today. per vascular surgery, pt most likely will be discharged today.
Pt is aware, expressed her agreement with discharge and pt stated her daughter will transport home. pt is aware she will have [facility] at home.
IMM reviewed, placed on chart, pt has a copy
[facility] liaison following.
Please fax discharge instructions to [facility] at [phone].
D/C plan: home with [facility] mike family support. Daughter to transport.
[2025-01-27 13:30] LABS: Magnesium 2.0 mg/dl (1.6-2.3)
[2025-01-27 13:37] LABS: Troponin I < 0.012 ng/ml
--- NOTE | 2025-01-27 13:57 | W.PN.VS ---
Today's Communication / Plan
-
Below plan reviewed with attending Dr. Ted English III
Assessment/Plan
-
Assessment: 79-year-old female POD #2
1. Intravascular lithotripsy to BILATERAL common iliac artery stenoses (bilateral 9 mm x 30 mm L6 shockwave balloons)
2. Aortoiliac stent grafting using AFX device (22�80/16�40 AFX main body; left iliac limb extension using 16 mm x 45 mm Ovation limb)
3. Left common femoral artery and proximal superficial femoral artery endarterectomy with patch angioplasty using bovine pericardium
4. Intravascular lithotripsy to right superficial femoral artery and popliteal artery calcified stenoses (6 mm x 80 mm E8 shockwave balloon)
5. Balloon angioplasty and drug-eluting stent placement to right superficial femoral artery and popliteal artery (overlapping 6 mm x 140 mm Zilver PTX stents)
6. Drug-coated balloon angioplasty to right popliteal artery stenosis behind the knee (5 mm x 60 mm Lutonix DCB)
7. Diagnostic right lower extremity arteriogram
8. Ultrasound-guided percutaneous access to the right common femoral artery
Plan:
Continue to encourage ambulation
Patient pricing for Xarelto is 215.60$ a month, relayed this information to the patient who indicates she cannot afford this medication. We will utilize DAPT of 75 mg Plavix p.o. daily with aspirin 81 mg Plavix p.o. daily for medical management.
PT
Continue incentive spirometry
Patient appears to have chronic hyponatremia, asymptomatic, reviewed with attending Dr. Ted English III, advised patient to follow-up with her primary care provider within the next 1 to 2 weeks for workup
Patient noted to have intermittent tachycardia 100-110, patient currently in normal sinus rhythm, EKG unremarkable, troponin negative, magnesium within normal limits. Additionally patient denies any symptoms of chest pain, jaw pain, back pain,
shortness of breath, dyspnea exertion, or nausea
Cleared for discharge
Encouraged smoking cessation
Subjective Data
-
Date of Service: January 27, 2025
Patient seen and examined at bedside, offers no complaints. Denies nausea, vomiting, fever, chills, chest pain, or shortness of breath. Reports adequate postoperative pain management.
Objective Data
-
Vital Signs
Temp Pulse Resp BP Pulse Ox
97.7 F 91 18 126/69 96
01/27/25 11:33 01/27/25 11:33 01/27/25 11:33 01/27/25 11:33 01/27/25 11:33
Intake and Output
01/26/25 01/27/25 01/28/25
06:59 06:59 06:59
Intake Total 1770 / 1770 720 / 720
Output Total 825 / 825
Balance 945 / 945 720 / 720
Intake:
Oral fluids 1450 / 1450 720 / 720
IV fluids (Total) 320 / 320
Nss 1,000 ml @ 80 mls/hr IV . 320 / 320
[id number] ANALI Rx#:[id number]
Output:
Urine, English 575 / 575
Urine, Voided 250 / 250
Other:
Number of approximated SMALL 1
amounts of urine
Number of approximated MODERATE 1 1 2
amounts of urine
How many times incontinent 1
SMALL amount urine
How many times incontinent 2
MODERATE amount urine
Lab Results
01/27/25 05:59
01/27/25 05:59
Calcium 9.2 mg/dl (8.4-10.2) 01/27/25 05:59
Magnesium 2.0 mg/dl (1.6-2.3) 01/27/25 13:04
Physical Exam
-
No apparent distress, resting in bed comfortably
No tachycardia
No dyspnea on room air
ABD flat, nontender, nondistended
Left groin surgical site with gilda dressing, change by this provider. New dressing dry and intact, flat, no evidence of hematoma
Right DP palpable and left PT palpable
[2025-01-27 14:50] VITALS: BP 149/84
--- NOTE | 2025-01-27 15:16 | W.DS.TRANS ---
DC Summary - Pharmacy Scheduler
-
Discharge Instructions:
Discharge Diagnosis/Procedures Diagnosis:
1. Limb threatening ischemia with nonhealing
right Achilles wound
2. Severe calcified distal aorta and bilateral
common iliac artery disease
3. Calcified left common femoral artery
occlusive disease
4. Calcified right superficial femoral artery
and popliteal artery disease
Procedures:
1. Intravascular lithotripsy to BILATERAL common
iliac artery stenoses (bilateral 9 mm x 30 mm
L6 shockwave balloons)
2. Aortoiliac stent grafting using AFX device (
22�80/16�40 AFX main body; left iliac limb
extension using 16 mm x 45 mm Ovation limb)
3. Left common femoral artery and proximal
superficial femoral artery endarterectomy with
patch angioplasty using bovine pericardium
4. Intravascular lithotripsy to right
superficial femoral artery and popliteal artery
calcified stenoses (6 mm x 80 mm E8 shockwave
balloon)
5. Balloon angioplasty and drug-eluting stent
placement to right superficial femoral artery
and popliteal artery (overlapping 6 mm x 140 mm
Zilver PTX stents)
6. Drug-coated balloon angioplasty to right
popliteal artery stenosis behind the knee (5 mm
x 60 mm Lutonix DCB)
7. Diagnostic right lower extremity arteriogram
8. Ultrasound-guided percutaneous access to the
right common femoral artery
Diet As tolerated
Activity No strenuous activity
Driving Restrictions Not until seen by your Dr
Bathing Restrictions OK to Shower
Instructions: Endarterectomy (DC)
Peripheral angioplasty - Discharge instructions
Stand-Alone Forms: Vascular Surg Discharge Instr
Changes to Home Medications: Yes
Discharge Medications:
DC Medications w/original date entered in [employer]
atorvastatin 40 mg tablet 40 mg PO DAILY High Cholesterol 01/16/25
lisinopril 10 mg tablet 10 mg PO DAILY Blood Pressure 01/16/25
polyethylene glycol 3350 17 gram/dose oral powder (Miralax) 17 g PO DAILYPRN PRN constipation 01/24/25
aspirin 81 mg capsule 81 mg PO DAILY #90 caps 01/27/25
clopidogrel 75 mg tablet 75 mg PO DAILY #90 tabs 01/27/25
oxycodone 5 mg tablet 5 mg PO Q4HPRN PRN moderate pain #10 tabs 01/27/25
Home Medication Changes
clopidogrel 75 mg tablet 75 mg PO DAILY #90 tabs 01/27/25
oxycodone 5 mg tablet 5 mg PO Q4HPRN PRN moderate pain #10 tabs 01/27/25
Pending Results: No
Total time spent discharging patient (in min): 15
--- NOTE | 2025-01-27 15:21 | W.[place]-PDMP ---
[place]PD[place]
-
Checked the [place]- Pres[place] Drug Monitoring [place] website, no red flags identified; safe to proceed with prescription.
== END 2025-01-27 16:59 | disposition home health service (06) | DRG 279 ==
LOC: 2 NORTH 06:10
PROVIDERS: Nurse Practitioner; Nurse Practitioner Acute Care; ADMITTING PHYSICIAN Surgery Vascular Surgery; CONSULT PHYSICIAN Internal Medicine; PRIMARYCARE PHYSICIAN Family Medicine; REFERRING PHYSICIAN Internal Medicine Cardiovascular Disease
PROC: 04CL0ZZ Extirpation of Matter from Left Femoral Artery, Open Approach (ICD-10-PCS; 2025-01-24)
PROC: 04FC3ZZ Fragmentation of Right Common Iliac Artery, Percutaneous Approach (ICD-10-PCS; 2025-01-24)
PROC: 047M341 Dilation of Right Popliteal Artery with Drug-eluting Intraluminal Device, using Drug-Coated Balloon, Percutaneous Approach (ICD-10-PCS; 2025-01-24)
PROC: 04UL0KZ Supplement Left Femoral Artery with Nonautologous Tissue Substitute, Open Approach (ICD-10-PCS; 2025-01-24)
PROC: B41F1ZZ Fluoroscopy of Right Lower Extremity Arteries using Low Osmolar Contrast (ICD-10-PCS; 2025-01-24)
PROC: 04FD3ZZ Fragmentation of Left Common Iliac Artery, Percutaneous Approach (ICD-10-PCS; 2025-01-24)
PROC: 047K34Z Dilation of Right Femoral Artery with Drug-eluting Intraluminal Device, Percutaneous Approach (ICD-10-PCS; 2025-01-24)
PROC: 047D3DZ Dilation of Left Common Iliac Artery with Intraluminal Device, Percutaneous Approach (ICD-10-PCS; 2025-01-24)
PROC: 04FM3ZZ Fragmentation of Right Popliteal Artery, Percutaneous Approach (ICD-10-PCS; 2025-01-24)
PROC: 04FK3ZZ Fragmentation of Right Femoral Artery, Percutaneous Approach (ICD-10-PCS; 2025-01-24)
PROC: 047C3DZ Dilation of Right Common Iliac Artery with Intraluminal Device, Percutaneous Approach (ICD-10-PCS; 2025-01-24)
DX: I70.234 Atherosclerosis of native arteries of right leg with ulceration of heel and midfoot (principal); D62 Acute posthemorrhagic anemia; E87.1 Hypo-osmolality and hyponatremia; L97.419 Non-pressure chronic ulcer of right heel and midfoot with unspecified severity; I70.0 Atherosclerosis of aorta; I70.222 Atherosclerosis of native arteries of extremities with rest pain, left leg; I70.8 Atherosclerosis of other arteries; R00.0 Tachycardia, unspecified; F17.200 Nicotine dependence, unspecified, uncomplicated; E78.5 Hyperlipidemia, unspecified; I10 Essential (primary) hypertension; J98.4 Other disorders of lung; R91.1 Solitary pulmonary nodule
CPT/HCPCS: 36415; 71045; 71046; 71250; 80048; 83735; 84484; 85014; 85018; 85025; 85027; 85610; 85730; 86850; 86900; 86901; 88304; 88311; 93005; 97116; 97162; 99406; C1725; C1760; C1769; C1773; C1874; C1894; C2623; C2628; C9765

== ENCOUNTER → 2025-03-01 07:29 | Outpatient (REF) | payer OTHER, SELFPAY | LOC: RAD 07:29 | PROVIDERS: ATTENDING PHYSICIAN Registered Nurse; FAMILY PHYSICIAN Family Medicine | DX: I73.9 Peripheral vascular disease, unspecified (principal); I70.234 Atherosclerosis of native arteries of right leg with ulceration of heel and midfoot | CPT/HCPCS: 93922; 93925; 93978 ==